=== PATIENT | female | born 1975 ===

== ENCOUNTER 2019-06-18 05:01 | Day surgery (SDC) | payer MEDICARE, OTHER ==
[2019-06-17 10:46] VITALS: BMI 29.9
[2019-06-18] MEDS ORDERED: PROPOFOL 20 ML ONE (13:09)
[2019-06-18] MEDS ORDERED: MIDAZOLAM HCL 2 MG/2 ML SINGLE DOSE VIAL ONE (13:09)
--- NOTE | 2019-06-18 13:13 | HP ---
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: No: Alzheimer's, CVA, Dementia, Migraine, Multiple Sclerosis, Peripheral Neuropathy, Parkinson's, Seizure, Syncope, TIA, Vertigo, Other Gastrointestinal: No: Ascites, Cancer, Constipation, Crohn's Disease, Diverticulitis, Diverticulosis, Esophageal Varices, Gastritis, GERD, GI Bleed, Hemorrhoids, Hiatal Hernia, Inflamatory Bowel Disease, Irritable Bowel Disease, Pancreatitis, Peptic Ulcer Disease, Ulcerative Colitis, Other Hepatobiliary: No: Cirrhosis, Cholelithiasis, Cholecystitis, Choledocholithiasis , Hepatitis A, Hepatitis B, Hepatitis C, Other Renal/: No: Renal Failure, Renal Inusuff, BPH, Cancer, Hematuria, Hemodialysis , Neurogenic Bladder, Renal Calculi, UTI, Other Reproductive: No: Ectopic , Endometriosis, Fibroids, PID, Polycystic Ovary Syndrome, Postmenopausal, Other ...LMP: 06/08/19 ...: No - Smoking History Smoking history: Never smoked - Alcohol/Substance Use Hx Alcohol Use: No Home Medications - Allergies Allergies/Adverse Reactions: Allergies Allergy/AdvReac Type Severity Reaction Status Date / Time No Known Allergies Allergy Verified 06/17/19 10:37 - Home Medications Home Medications: Ambulatory Orders Hydrochlorothiazide 25 mg PO DAILY 06/18/19 Lisinopril 5 mg PO DAILY 06/18/19 Physical Examination Vital Signs: Vital Signs Temperature 98.6 F 06/18/19 12:14 Pulse Rate 83 06/18/19 12:14 Respiratory Rate 16 06/18/19 12:14 Blood Pressure 141/95 06/18/19 12:14 O2 Sat by Pulse Oximetry (%) 97 06/18/19 12:16 Imaging - Results Ultrasound: Report Reviewed Problem List - Problems (1) DUB (dysfunctional uterine bleeding) Code(s): N93.8 - OTHER SPECIFIED ABNORMAL UTERINE AND VAGINAL BLEEDING Assessment/Plan 43yo here with DUB here for hysteroscopy, D&C Risk reviewed, including bleeding, infection, uterine perforation NPO, IVFs TEDs All questions answered, consent signed Norberto Galvin MD
[2019-06-18] MEDS ORDERED: KETOROLAC TROMETHAMINE 30 MG/1 ML VIAL ONE (13:36)
--- NOTE | 2019-06-18 14:08 | OP ---
Operative Note - Note: Operative Date: 06/18/19 Operation: Diagnostic Hysteroscopy, Dilation and Curettage Findings: Normal cervix, normal endocervical canal, normal endometrial cavity Post-Operative Diagnosis: Same as Pre-op Surgeon: Nicole Galvin Anesthesia: General Estimated Blood Loss (mls): 25
[2019-06-18] MEDS ORDERED: ONDANSETRON 4 MG/2 ML VIAL IVPUSH PRN (14:21)
[2019-06-18] MEDS ORDERED: oxyCODONE HCL 5 MG TABLET PO PRN (14:21)
[2019-06-18] MEDS ORDERED: LACTATED RINGERS SOLUTION 1,000 ML IV SCH (14:30)
[2019-06-18 17:10] VITALS: TEMP 98
[2019-06-18 17:13] VITALS: BP 137/88; PULSE 88
--- NOTE | 2019-06-19 11:18 | OP ---
DATE OF OPERATION: 06/18/2019 PREOPERATIVE DIAGNOSIS: Dysfunctional uterine bleeding. POSTOPERATIVE DIAGNOSIS: Dysfunctional uterine bleeding. PROCEDURE: Diagnostic hysteroscopy, dilation and curettage. ANESTHESIA: General. INTRAVENOUS FLUIDS: Per anesthesia record. ESTIMATED BLOOD LOSS: 25. URINE OUTPUT: Not measured. FINDINGS: Normal endometrial canal, normal endocervical canal, normal ostia bilaterally. COMPLICATIONS: None. CONDITION: Stable to recovery room. NATURE OF THE PROCEDURE: After the appropriate consents were signed, patient was taken to the operating room. General anesthesia was administered. She was placed in dorsal lithotomy position. The operative field was prepped and draped in normal sterile fashion. Timeout was performed, confirming correct patient and procedure. Sterile speculum was inserted into the vagina with good visualization of the cervix. The anterior lip of the cervix was grasped with a single-tooth tenaculum. Cervix was then dilated with the Monroy dilators to accommodate the hysteroscope. Uterus was sounded, noted to be 9.5 cm. The hysteroscope was then introduced under fluid distention. Endocervical canal was noted to be normal without masses. The endometrial cavity was also noted to be normal without masses, just notable for fluffy endometrium. Both ostia were visualized and appeared normal. The hysteroscope was then removed. Curettage was then performed in all 4 quadrants until a gritty texture was noted. The specimen was then passed off for pathology. The single-tooth tenaculum was removed off the anterior lip of the cervix. The bite sites were hemostatic. Speculum was then removed. All sponge and lap counts were correct x2. The patient was taken from the operating room to the recovery room in stable condition. MD RICCARDO LARKIN/[id number]
--- NOTE | 2019-06-20 16:51 | PATH ---
Surgical Pathology Report Patient Name: ELIEZER CASTILLO [facility]. Rec. #: [id number] /Age/Gender: 1975 (Age: 43) / F Account: [id number] Location: [facility] SURGICAL Taken: 06/18/2019 Received: 06/19/2019 Reported: 06/20/2019 Physicians: Nicole Galvin Specimen(s) Received ENDOMETRIAL CURETTINGS Clinical History Dysfunctional uterine bleeding Final Diagnosis ENDOMETRIAL CURETTINGS: FRAGMENTS OF PROLIFERATIVE ENDOMETRIUM WITH MILD CHRONIC ENDOMETRITIS. 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 SEPARATE ENDOCERVICAL TISSUE WITH NO SIGNIFICANT PATHOLOGIC CHANGE. Electronically Signed Carmen Vivas M.D. Gross Description Received in formalin labeled "endometrial curettings," is a 5.0 x 2.7 x 0.3 cm aggregate of ramos red soft tissue fragments. The formalin is filtered and the specimen is entirely submitted in 2 cassettes. /06/19/2019 saudi/06/19/2019
== END 2019-06-18 17:10 | disposition home or self-care (01) ==
LOC: JASU-SURG 05:01
PROVIDERS: ATTEND Obstetrics & Gynecology
PROC: 0UDB7ZX Extraction of Endometrium, Via Natural or Artificial Opening, Diagnostic (ICD-10-PCS; principal; 2019-06-18 13:00)
PROC: 0UJD8ZZ Inspection of Uterus and Cervix, Via Natural or Artificial Opening Endoscopic (ICD-10-PCS; 2019-06-18 13:00)
DX: N93.8 Other specified abnormal uterine and vaginal bleeding (principal)
CPT/HCPCS: 36415; 84703; 86850; 86900; 86901; 86922; 88305-TC; 94760